=== PATIENT | female | born 1955 | race Caucasian/White ===

== ENCOUNTER → 2020-11-25 | Outpatient (CLI) | payer OTHER ==
[~2020-11-25] MED LIST: RT-ALBUTEROL SULF 2.5 MG/3 ML PRE-MIX VIAL INH ONE
== END ==
LOC: RT 08:00
PROVIDERS: ATTEND Nurse Practitioner Family
DX: R06.02 Shortness of breath (principal)
CPT/HCPCS: 94060; 94726; 94729

== ENCOUNTER → 2021-02-20 | Outpatient (CLI) | payer OTHER ==
--- NOTE | 2021-02-23 09:06 | Diagnostic Imaging Report ---
INDICATION: Routine screening. COMPARISON: No prior mammograms are available for comparison. TECHNIQUE: 2D and 3D bilateral screening mammography was performed with CAD. FINDINGS: Scattered fibroglandular densities are identified bilaterally. There is a density noted in the left breast just medial to the nipple line at mid depth, best seen on the CC view. No corresponding density on the MLO view is seen. No malignant-appearing microcalcifications are identified. The axillae are unremarkable. IMPRESSION: Left breast density. Additional views are recommended for further evaluation. ACR BI-RADS Category 0: Incomplete. (Needs additional imaging evaluation). Result letter will be mailed to the patient. Note: At least 10% of breast cancer is not imaged by mammography. Dictated by: Dictated on workstation # [id number]
== END ==
LOC: RAD 08:45
PROVIDERS: ATTEND Nurse Practitioner
DX: Z12.31 Encounter for screening mammogram for malignant neoplasm of breast (principal)
CPT/HCPCS: 77063; 77067